=== PATIENT | male | born 1995 ===

== ENCOUNTER 2018-03-12 08:10 | Outpatient (CLI) | payer OTHER ==
[~2018-03-12] VITALS: Ht 175.3 cm; Wt 72.6 kg
== END 2018-03-12 08:30 | disposition home or self-care (01) ==
LOC: OFIC 805 08:10
DX: K21.9 Gastro-esophageal reflux disease without esophagitis (principal); R13.19 Other dysphagia

== ENCOUNTER 2025-07-04 11:14 | Outpatient (CLI) | payer OTHER | END 2025-07-04 11:23 | disposition home or self-care (01) | LOC: RAD 11:14 | PROVIDERS: ATTEND Physical Medicine & Rehabilitation | DX: M54.2 Cervicalgia (principal); M54.6 Pain in thoracic spine ==